=== PATIENT | female | born 1975 | race Caucasian/White ===

== ENCOUNTER 2016-05-11 00:28 | Emergency (ER) | payer OTHER ==
[~2016-05-11] VITALS: Ht 175.3 cm; Wt 89.9 kg
[~2016-05-11 00:28] MED LIST: ADVIL200 MG PO; ALLEGRA ALLERG180 MG PO; ALLEGRA60 MG PO; AMLODIPINE BESYL5 MG PO; BENICAR20 MG PO; BENICAR5 MG PO; BENTYL10 MG PO; CIPRO250 MG PO; CIPRO500 MG PO; CITALOPRAM HBR20 MG PO; FLEXERIL10 MG PO; FLEXERIL5 M1 PO; Flexeril PO; KLOR-CON M2020 MEQ PO; LOPRESSOR50 MG PO; LORTAB 5-325 M1 EACH PO; LYRICA75 MG PO; MEMANTINE HCL10 MG PO; METOPROLOL TART50 MG PO; Motrin PO; NAMENDA10 MG PO; NAPROSYN500 MG PO; NORVASC10 MG PO; NORVASC5 MG PO; Norvasc PO; PERCOCET 5/31 TABLET PO; PERCOCET PO; PRISTIQ50 MG PO; PROMETHAZINE HC25 M1 PO; PYRIDIUM200 MG PO; Percocet 5/325,Endoc PO; REGLAN5 MG PO; SINGULAIR10 MG PO; Singulair PO; TOPAMAX100 MG PO; TROKENDI XR200 MG PO; TYLENOL EXTRA500 MG PO; Theragran PO; Topamax PO; Tylenol Extra Streng PO; Tylenol Regular Stre PO; ULTRAM50 MG PO; VOLTAREN25 MG PO; Voltaren PO; XANAX0.5 MG PO; Xanax PO; ZOFRAN4 MG PO; ZOFRAN8 MG PO; ZYRTEC10 M3 PO; [UNRECOGNIZED DRUG - OTHER] PO
[2016-05-11 02:00] LABS: ADD MIUA? NO; BILIRUBIN NEGATIVE; BLOOD NEGATIVE; COLOR YELLOW ((YELLOW)); GLUCOSE (STRIP) NEGATIVE; KETONES NEGATIVE; LEUKOCYTES NEGATIVE; NITRITE NEGATIVE; PH, URINE 6.5 (5-8); PROTEIN (STRIP) NEGATIVE; SPECIFIC GRAVITY 1.015 (1.000-1.030); UCUL ADDED? NO; UROBILINOGEN 0.2 MG/DL (0.2-1.0)
[2016-05-11 02:22] LABS: HEMATOCRIT 35.3 % (36.0-46.0); MCH 31.7 PG (29.0-34.0); MCHC 34.6 G/DL (30.0-36.0); MCV 91.7 FL (83-99); MEAN PLAT.VOLUME 8.7 uM^3 (9.5-12.4); PLATELET COUNT 333 K/uL (156-360); RBC DIS.WIDTH-CV 13.3 % (11.8-14.6); RBC DIS.WIDTH-SD 42.9 % (39-53); RED BLOOD COUNT 3.85 M/uL (3.80-5.20)
[2016-05-11 02:32] LABS: CHLORIDE 113 mEq/L (99-109); POTASSIUM 3.1 mEq/L (3.7-5.4); SODIUM 141 mEq/L (136-147)
[2016-05-11 02:34] LABS: GLUCOSE 99 mg/dL (70-99)
[2016-05-11 02:35] LABS: ANION GAP 9 MEQ/L (2-14)
[2016-05-11 02:36] LABS: TOTAL BILIRUBIN 0.5 mg/dL (0.0-1.0)
[2016-05-11 02:37] LABS: ALKALINE PHOSPHATASE 62 IU/L (3-129)
[2016-05-11 02:38] LABS: GFR ESTIMATE (CALCULATED) > 59 mL/min/
[2016-05-11 02:39] LABS: UREA NITROGEN (BUN) 10 mg/dL (9-23)
[2016-05-11 02:41] LABS: LIPASE 92 U/L (1.0-51.0)
[2016-05-11] MEDS ORDERED: TUSSIONEX PENN473 ML PO (04:47)
[2016-05-11] MEDS ORDERED: CEFDINIR300 MG PO (04:47)
[2016-05-11 04:55] VITALS: BP 141/81
== END 2016-05-11 04:56 | disposition home or self-care (01) ==
LOC: EME 00:28
PROVIDERS: Emergency Medicine
DX: J01.90 Acute sinusitis, unspecified (principal); E87.6 Hypokalemia; I10 Essential (primary) hypertension; Z88.1 Allergy status to other antibiotic agents
CPT/HCPCS: 80053; 81003; 83690; 85027; 99281; 99285; J2405; J7030

== ENCOUNTER 2016-07-24 11:03 | Emergency (ER) | payer OTHER ==
[~2016-07-24] VITALS: Ht 172.7 cm; Wt 91.4 kg
[~2016-07-24 11:03] MED LIST changes: +CEFDINIR300 MG PO; +TUSSIONEX PENN473 ML PO
[2016-07-24 11:51] LABS: HEMATOCRIT 38.2 % (36.0-46.0); MCH 30.7 PG (29.0-34.0); MCHC 33.8 G/DL (30.0-36.0); PLATELET COUNT 291 K/uL (156-360); RBC DIS.WIDTH-CV 13.2 % (11.8-14.6); RBC DIS.WIDTH-SD 43.5 % (39-53); WHITE BLOOD COUNT 6.4 K/uL (4.1-10.2)
[2016-07-24 12:02] LABS: CHLORIDE 110 mEq/L (99-109); POTASSIUM 3.6 mEq/L (3.7-5.4); SODIUM 138 mEq/L (136-147)
[2016-07-24 12:04] LABS: GLUCOSE 119 mg/dL (70-99)
[2016-07-24 12:05] LABS: ANION GAP 9 MEQ/L (2-14)
[2016-07-24 12:06] LABS: TOTAL BILIRUBIN 0.4 mg/dL (0.0-1.0)
[2016-07-24 12:06] LABS: ADD MIUA? YES; BILIRUBIN NEGATIVE; BLOOD NEGATIVE; COLOR YELLOW ((YELLOW)); GLUCOSE (STRIP) NEGATIVE; KETONES NEGATIVE; LEUKOCYTES NEGATIVE; NITRITE NEGATIVE; PROTEIN (STRIP) NEGATIVE; SPECIFIC GRAVITY 1.014 (1.000-1.030); UROBILINOGEN 0.2 MG/DL (0.2-1.0)
[2016-07-24 12:07] LABS: ALKALINE PHOSPHATASE 64 IU/L (3-129)
[2016-07-24 12:08] LABS: GFR ESTIMATE (CALCULATED) > 59 mL/min/
[2016-07-24 12:09] LABS: UREA NITROGEN (BUN) 12 mg/dL (9-23)
[2016-07-24 12:11] LABS: LIPASE 31 U/L (1.0-51.0)
[2016-07-24] MEDS ORDERED: ATACAND16 MG PO (12:12)
[2016-07-24] MEDS ORDERED: PROTONIX40 MG PO (12:13)
[2016-07-24] MEDS ORDERED: PROMETHAZINE HC25 M1 PO (12:13)
[2016-07-24 12:15] LABS: BACTERIA RARE /HPF; EPITHELIAL CELLS 1+ /HPF; MUCUS TRACE /LPF; RED BLOOD CELLS 0-5 /HPF (0-5); UCUL ADDED? NO; WHITE BLOOD CELLS 0-5 /HPF (0-5)
[2016-07-24 12:17] LABS: QUANTITATIVE HCG < 4.0 MIU/ML
[2016-07-24] MEDS ORDERED: ZOFRAN ODT4 MG PO (13:40)
[2016-07-24] MEDS ORDERED: CARAFATE1 GM PO (13:40)
[2016-07-24 13:50] VITALS: BP 150/82
[2016-07-25] MEDS ORDERED: REGLAN10 MG PO (14:27)
[2016-07-25] MEDS ORDERED: BENTYL10 MG PO (14:27)
[2016-07-25] MEDS ORDERED: TOPAMAX100 MG PO (22:20)
== END 2016-07-24 13:50 | disposition home or self-care (01) ==
LOC: EXP 11:03 → EME 11:03 → EXP 13:50
DX: R10.9 Unspecified abdominal pain (principal); R11.2 Nausea with vomiting, unspecified; J45.909 Unspecified asthma, uncomplicated; I10 Essential (primary) hypertension; K21.9 Gastro-esophageal reflux disease without esophagitis
CPT/HCPCS: 74177; 80053; 81003; 83690; 84702; 85027; 99281; 99284; J2270; J7030

== ENCOUNTER 2016-07-25 13:27 | Emergency (ER) | payer OTHER ==
[~2016-07-25] VITALS: Ht 172.7 cm; Wt 88.4 kg
[~2016-07-25 13:27] MED LIST changes: +ATACAND16 MG PO; +CARAFATE1 GM PO; +PROTONIX40 MG PO; +ZOFRAN ODT4 MG PO
[2016-07-25] MEDS ORDERED: REGLAN10 MG PO (14:27)
[2016-07-25] MEDS ORDERED: BENTYL10 MG PO (14:27)
[2016-07-25 15:24] VITALS: BP 149/90
[2016-07-25] MEDS ORDERED: TOPAMAX100 MG PO (22:20)
== END 2016-07-25 15:26 | disposition home or self-care (01) ==
LOC: EME 13:27
DX: R11.2 Nausea with vomiting, unspecified (principal); R10.13 Epigastric pain
CPT/HCPCS: 99281; 99285; J1885; J2405; J2765; J7030

== ENCOUNTER → 2016-08-04 | Outpatient (CLI) | payer OTHER ==
[~2016-08-04] VITALS: Ht 172.7 cm; Wt 89.0 kg
[~2016-08-04] MED LIST changes: +REGLAN10 MG PO
[2016-08-04 07:52] VITALS: BP 121/77
== END | disposition home or self-care (01) ==
LOC: IVINF 07-31 19:00
PROVIDERS: Internal Medicine Endocrinology, Diabetes & Metabolism
DX: E27.40 Unspecified adrenocortical insufficiency (principal)
CPT/HCPCS: 80400; 82024 90; 82533 91; 96374; J0834

== ENCOUNTER 2016-09-21 00:50 | Emergency (ER) | payer OTHER ==
[~2016-09-21] VITALS: Ht 175.3 cm; Wt 93.7 kg
[2016-09-21] MEDS ORDERED: ZOFRAN4 MG PO (03:20)
[2016-09-21] MEDS ORDERED: FLEXERIL10 MG PO (03:20)
[2016-09-21 03:21] LABS: QUANTITATIVE HCG < 4.0 MIU/ML
[2016-09-21 03:25] LABS: ALKALINE PHOSPHATASE 55 IU/L (3-129); ANION GAP 13 MEQ/L (2-14); CHLORIDE 106 MEQ/L (99-109); GFR ESTIMATE (CALCULATED) > 59 mL/min/; GLUCOSE 94 mg/dL (70-99); LIPASE 28 U/L (1.0-51.0); POTASSIUM 3.4 MEQ/L (3.7-5.4); SAMPLE HEMOLYSIS CHECK 0; SAMPLE ICTERIC CHECK 0; SAMPLE LIPEMIA CHECK 0; SODIUM 139 MEQ/L (136-147); TOTAL BILIRUBIN 0.5 MG/DL (0.0-1.0); UREA NITROGEN (BUN) 12 mg/dL (9-23)
[2016-09-21 03:33] LABS: RED BLOOD COUNT 4.54 M/uL (3.80-5.20); WHITE BLOOD COUNT 9.6 K/uL (4.1-10.2)
[2016-09-21 03:34] LABS: MCH 30.6 PG (29.0-34.0); MCHC 34.8 G/DL (30.0-36.0); MCV 88.1 FL (83-99); MEAN PLAT.VOLUME 9.1 uM^3 (9.5-12.4); PLATELET COUNT 399 K/uL (156-360); RBC DIS.WIDTH-CV 13.2 % (11.8-14.6); RBC DIS.WIDTH-SD 42.6 % (39-53)
[2016-09-21 03:41] LABS: ADD MIUA? YES; BILIRUBIN NEGATIVE; BLOOD NEGATIVE; COLOR YELLOW ((YELLOW)); GLUCOSE (STRIP) NEGATIVE; KETONES NEGATIVE; LEUKOCYTES NEGATIVE; NITRITE NEGATIVE; PROTEIN (STRIP) NEGATIVE; SPECIFIC GRAVITY 1.012 (1.000-1.030); UROBILINOGEN 0.2 MG/DL (0.2-1.0)
[2016-09-21 03:46] VITALS: BP 133/86
[2016-09-21 03:56] LABS: BACTERIA RARE /HPF; EPITHELIAL CELLS RARE /HPF; MUCUS TRACE /LPF; RED BLOOD CELLS 0-5 /HPF (0-5); UCUL ADDED? NO; WHITE BLOOD CELLS 0-5 /HPF (0-5)
== END 2016-09-21 03:47 | disposition home or self-care (01) ==
LOC: EME 00:50
DX: I10 Essential (primary) hypertension (principal); R25.2 Cramp and spasm; R11.0 Nausea; E27.1 Primary adrenocortical insufficiency
CPT/HCPCS: 80053; 81003; 83690; 84702; 85027; 99281; 99284

== ENCOUNTER 2016-10-15 09:51 | Emergency (ER) | payer OTHER ==
[~2016-10-15] VITALS: Ht 175.3 cm; Wt 95.8 kg
[2016-10-15] MEDS ORDERED: BUTALB-APAP-CA1 EACH PO (10:20)
[2016-10-15 10:49] LABS: BASOPHIL COUNT 0.1 K/uL (0-0.1); EOSINOPHIL (%) 0.5 % (0-5); EOSINOPHIL COUNT 0.1 K/uL (0-0.3); HEMATOCRIT 35.2 % (36.0-46.0); IMMATURE GRANULOCYTE (%) 0.5 % (0.0-0.7); IMMATURE GRANULOCYTE COUNT 0.1 K/uL; INSTRUMENT ABS NEUTROPHIL CT 6.4 K/uL; LYMPHOCYTE COUNT 2.4 K/uL (1.0-2.8); MCH 30.7 PG (29.0-34.0); MCHC 34.7 G/DL (30.0-36.0); MCV 88.7 FL (83-99); MONOCYTE (%) 4.2 % (3-12); MONOCYTE COUNT 0.4 K/uL (0-0.8); NEUTROPHIL (%) 68.2 % (45-76); NEUTROPHIL COUNT 6.4 K/uL (1.8-6.4); PLATELET COUNT 284 K/uL (156-360); RBC DIS.WIDTH-CV 13.1 % (11.8-14.6); RBC DIS.WIDTH-SD 42.2 % (39-53); RED BLOOD COUNT 3.97 M/uL (3.80-5.20); WHITE BLOOD COUNT 9.4 K/uL (4.1-10.2)
[2016-10-15 11:00] LABS: CHLORIDE 114 mEq/L (99-109); POTASSIUM 3.6 mEq/L (3.7-5.4); SODIUM 140 mEq/L (136-147)
[2016-10-15 11:02] LABS: GLUCOSE 96 mg/dL (70-99)
[2016-10-15 11:03] LABS: ANION GAP 7 MEQ/L (2-14)
[2016-10-15 11:06] LABS: GFR ESTIMATE (CALCULATED) > 59 mL/min/; UREA NITROGEN (BUN) 10 mg/dL (9-23)
[2016-10-15 11:10] LABS: TROP-I INTERPRETATION NEGATIVE; TROPONIN-I < 0.01 ng/mL (0.0-0.30)
[2016-10-15] MEDS ORDERED: INDOCIN50 MG PO (12:13)
[2016-10-15] MEDS ORDERED: VALIUM2 MG PO (12:13)
[2016-10-15 12:26] VITALS: BP 131/93
== END 2016-10-15 12:29 | disposition home or self-care (01) ==
LOC: EME 09:51
PROVIDERS: Emergency Medicine
DX: R07.89 Other chest pain (principal); Z88.8 Allergy status to other drugs, medicaments and biological substances; Z88.1 Allergy status to other antibiotic agents; J45.909 Unspecified asthma, uncomplicated; I10 Essential (primary) hypertension; K21.9 Gastro-esophageal reflux disease without esophagitis
CPT/HCPCS: 71010; 80048; 84484; 85025; 85379; 93005; 99281; 99285; J3010; J7040

== ENCOUNTER 2017-06-03 10:55 | Emergency (ER) | payer OTHER ==
[~2017-06-03] VITALS: Ht 175.3 cm; Wt 90.7 kg
[~2017-06-03 10:55] MED LIST changes: +BUTALB-APAP-CA1 EACH PO; +INDOCIN50 MG PO; +VALIUM2 MG PO
[2017-06-03 11:28] LABS: HEMATOCRIT 39.1 % (36.0-46.0); HEMOGLOBIN 13.7 G/DL (11.9-15.5); MCH 30.6 PG (29.0-34.0); MCV 87.3 FL (83-99); PLATELET COUNT 355 K/uL (156-360); RBC DIS.WIDTH-CV 12.8 % (11.8-14.6); RBC DIS.WIDTH-SD 40.6 % (39-53); RED BLOOD COUNT 4.48 M/uL (3.80-5.20); WHITE BLOOD COUNT 7.2 K/uL (4.1-10.2)
[2017-06-03 11:42] LABS: ALBUMIN 4.3 g/dL (3.2-4.8); CHLORIDE 109 mEq/L (99-109); POTASSIUM 3.8 mEq/L (3.7-5.4); SODIUM 136 mEq/L (136-147)
[2017-06-03 11:45] LABS: GLUCOSE 96 mg/dL (70-99); TOTAL PROTEIN 7.5 g/dL (6.4-8.3)
[2017-06-03 11:46] LABS: TOTAL BILIRUBIN 0.3 mg/dL (0.0-1.0)
[2017-06-03 11:48] LABS: ALKALINE PHOSPHATASE 57 IU/L (3-129); CREATININE 1.3 mg/dL (0.6-1.3); GFR ESTIMATE (CALCULATED) 48 mL/min/
[2017-06-03 11:49] LABS: UREA NITROGEN (BUN) 12 mg/dL (9-23)
[2017-06-03 11:50] LABS: AST (GOT) 23 IU/L (2-34)
[2017-06-03 11:51] LABS: ALT (GPT) 23 IU/L (3-49)
[2017-06-03 11:52] LABS: LIPASE 32 U/L (1.0-51.0)
[2017-06-03 11:57] LABS: QUANTITATIVE HCG < 4.0 MIU/ML
[2017-06-03 12:11] LABS: BILIRUBIN NEGATIVE; BLOOD NEGATIVE; GLUCOSE (STRIP) NEGATIVE; KETONES 5; LEUKOCYTES NEGATIVE; NITRITE NEGATIVE; PROTEIN (STRIP) 30; SPECIFIC GRAVITY 1.026 (1.000-1.030); UROBILINOGEN 0.2 MG/DL (0.2-1.0)
[2017-06-03 12:16] LABS: APPEARANCE CLEAR ((CLEAR)); COLOR YELLOW ((YELLOW)); UCUL ADDED? NO
[2017-06-03] MEDS ORDERED: AMBIEN10 MG PO (13:09)
[2017-06-03] MEDS ORDERED: BELBUCA300 MCG BC (13:09)
[2017-06-03] MEDS ORDERED: TROKENDI XR50 MG PO (13:09)
[2017-06-03] MEDS ORDERED: PRISTIQ50 MG PO (13:09)
[2017-06-03] MEDS ORDERED: ZANAFLEX4 M1 PO (13:10)
[2017-06-03] MEDS ORDERED: ZOFRAN ODT4 MG PO (15:03)
[2017-06-03 16:14] VITALS: BP 125/76
== END 2017-06-03 16:15 | disposition home or self-care (01) ==
LOC: EME 10:55
DX: A08.4 Viral intestinal infection, unspecified (principal); R42 Dizziness and giddiness; R51 Headache; J45.909 Unspecified asthma, uncomplicated; I10 Essential (primary) hypertension; K21.9 Gastro-esophageal reflux disease without esophagitis; G43.909 Migraine, unspecified, not intractable, without status migrainosus; E27.1 Primary adrenocortical insufficiency; Z90.49 Acquired absence of other specified parts of digestive tract; Z90.710 Acquired absence of both cervix and uterus; Z88.1 Allergy status to other antibiotic agents; Z88.8 Allergy status to other drugs, medicaments and biological substances
CPT/HCPCS: 80053; 81003; 83690; 84702; 85027; J1885

== ENCOUNTER 2017-11-26 12:23 | Observation (INO) | payer OTHER ==
[~2017-11-26] VITALS: Ht 175.3 cm; Wt 91.5 kg
[~2017-11-26 12:23] MED LIST changes: +AMBIEN CR6.25 MG PO; +BELBUCA300 MCG BC; +TROKENDI XR50 MG PO; +ZANAFLEX4 M1 PO
[2017-11-26 14:16] LABS: HEMATOCRIT 35.4 % (36.0-46.0); HEMOGLOBIN 12.7 G/DL (11.9-15.5); MCH 31.4 PG (29.0-34.0); MCHC 35.9 G/DL (30.0-36.0); MCV 87.6 FL (83-99); NRBC (%) 0.4 /100 WBC (0-0); PLATELET COUNT 260 K/uL (156-360); RBC DIS.WIDTH-CV 13.2 % (11.8-14.6); RBC DIS.WIDTH-SD 42.1 % (39-53); RED BLOOD COUNT 4.04 M/uL (3.80-5.20)
[2017-11-26 14:27] LABS: ALBUMIN 4.1 g/dL (3.2-4.8); CHLORIDE 111 mEq/L (99-109); POTASSIUM 4.3 mEq/L (3.7-5.4); SODIUM 139 mEq/L (136-147)
[2017-11-26 14:29] LABS: GLUCOSE 102 mg/dL (70-99); TOTAL PROTEIN 7.1 g/dL (6.4-8.3)
[2017-11-26 14:31] LABS: TOTAL BILIRUBIN 0.3 mg/dL (0.0-1.0)
[2017-11-26 14:33] LABS: ALKALINE PHOSPHATASE 51 IU/L (3-129); CREATININE 0.9 mg/dL (0.6-1.3); GFR ESTIMATE (CALCULATED) > 59 mL/min/
[2017-11-26 14:34] LABS: UREA NITROGEN (BUN) 13 mg/dL (9-23)
[2017-11-26 14:35] LABS: AST (GOT) 19 IU/L (2-34)
[2017-11-26 14:36] LABS: ALT (GPT) 18 IU/L (3-49); CREATINE KINASE 84 IU/L (1-294)
[2017-11-26 14:37] LABS: TROP-I INTERPRETATION NEGATIVE; TROPONIN-I < 0.01 ng/mL (0.0-0.30)
[2017-11-26 14:42] LABS: QUANTITATIVE HCG < 4.0 MIU/ML
[2017-11-26 14:49] LABS: MONOSPOT (MONONUCLEOSIS SEROL) NEGATIVE
[2017-11-26 15:07] LABS: THYROTROPIN (TSH) 3.3 MIU/L (0.4-5.5)
[2017-11-26 19:22] LABS: APPEARANCE SL.HAZY ((CLEAR)); BILIRUBIN NEGATIVE; BLOOD NEGATIVE; COLOR YELLOW ((YELLOW)); GLUCOSE (STRIP) NEGATIVE; KETONES NEGATIVE; LEUKOCYTES NEGATIVE; NITRITE NEGATIVE; PROTEIN (STRIP) NEGATIVE; SPECIFIC GRAVITY 1.008 (1.000-1.030); UROBILINOGEN 0.2 MG/DL (0.2-1.0)
[2017-11-26 19:29] LABS: BACTERIA RARE /HPF; EPITHELIAL CELLS 2+ /HPF; MUCUS NONE SEEN /LPF; RED BLOOD CELLS 0-5 /HPF (0-5); UCUL ADDED? NO; WHITE BLOOD CELLS 0-5 /HPF (0-5)
[2017-11-26] MEDS ORDERED: TROKENDI XR100 MG PO (21:33)
[2017-11-26] MEDS ORDERED: MAXALT5 MG PO (21:34)
[2017-11-26] MEDS ORDERED: ZOMIG5 MG PO (21:35)
[2017-11-26 23:38] VITALS: BP 180/89
[2017-11-27] VITALS (8 sets, daily range): BP systolic 101–195; BP diastolic 65–100
[2017-11-27 05:14] LABS: BASOPHIL (%) 0.7 % (0-1); BASOPHIL COUNT 0.1 K/uL (0-0.1); EOSINOPHIL (%) 1.5 % (0-5); EOSINOPHIL COUNT 0.1 K/uL (0-0.3); HEMATOCRIT 34.4 % (36.0-46.0); HEMOGLOBIN 11.9 G/DL (11.9-15.5); IMMATURE GRANULOCYTE (%) 0.3 % (0.0-0.7); LYMPHOCYTE (%) 41.2 % (15-42); LYMPHOCYTE COUNT 2.8 K/uL (1.0-2.8); MCH 30.7 PG (29.0-34.0); MCHC 34.6 G/DL (30.0-36.0); MCV 88.9 FL (83-99); MONOCYTE (%) 5.7 % (3-12); MONOCYTE COUNT 0.4 K/uL (0-0.8); NEUTROPHIL (%) 50.6 % (45-76); NEUTROPHIL COUNT 3.4 K/uL (1.8-6.4); PLATELET COUNT 252 K/uL (156-360); RBC DIS.WIDTH-CV 13.2 % (11.8-14.6); RBC DIS.WIDTH-SD 42.7 % (39-53); RED BLOOD COUNT 3.87 M/uL (3.80-5.20); WHITE BLOOD COUNT 6.8 K/uL (4.1-10.2)
[2017-11-27 06:12] LABS: ALBUMIN 3.5 G/DL (3.2-4.8); ALKALINE PHOSPHATASE 39 IU/L (3-129); ALT (GPT) 13 IU/L (3-49); AST (GOT) 14 IU/L (2-34); CHLORIDE 113 MEQ/L (99-109); GFR ESTIMATE (CALCULATED) > 59 mL/min/; GLUCOSE 100 mg/dL (70-99); POTASSIUM 3.8 MEQ/L (3.7-5.4); SODIUM 139 MEQ/L (136-147); TOTAL BILIRUBIN 0.3 MG/DL (0.0-1.0); TOTAL PROTEIN 6.1 G/DL (6.4-8.3); UREA NITROGEN (BUN) 11 mg/dL (9-23)
[2017-11-28 08:29] VITALS: BP 156/92
[2017-11-28 08:44] VITALS: BP 137/80
[2017-11-28] MEDS ORDERED: ANTIVERT12.5 MG PO (10:21)
[2017-11-29 09:25] LABS: LYME DISEASE SEROLOGY SCREEN NEGATIVE (NEGATIVE)
== END 2017-11-28 12:30 | disposition home or self-care (01) ==
LOC: EME 12:23 → EDOF 21:11 → 4SOUTH 21:11 → ENRESERV 21:24 → 4SOUTH 22:43 → ENPENDDIS 11-28 10:34 → 4SOUTH 11-28 12:30
PROVIDERS: Hospitalist; Physician Assistant; Psychiatry & Neurology Neurology
PROC: B246ZZZ Ultrasonography of Right and Left Heart (ICD-10-PCS; principal; 2017-11-27)
DX: I95.1 Orthostatic hypotension (principal); G43.909 Migraine, unspecified, not intractable, without status migrainosus; I10 Essential (primary) hypertension; Z90.49 Acquired absence of other specified parts of digestive tract; E87.6 Hypokalemia; J45.909 Unspecified asthma, uncomplicated; K21.9 Gastro-esophageal reflux disease without esophagitis; Z88.1 Allergy status to other antibiotic agents; Z88.8 Allergy status to other drugs, medicaments and biological substances
CPT/HCPCS: 70450; 70551; 71046; 80048; 80053; 80076; 81003; 82550; 82607; 82948; 84443; 84484; 84702; 85025; 85027; 86308; 86618; 93005; 93306; 99281; 99285; G0378; G8978 GP CH; G8979 GP CH; G8980 GP CH; J1650; J1885; J7030; Q0169

== ENCOUNTER 2017-12-04 20:09 | Observation (INO) | payer OTHER ==
[~2017-12-04] VITALS: Ht 175.3 cm; Wt 89.4 kg
[~2017-12-04 20:09] MED LIST changes: +ANTIVERT12.5 MG PO; +MAXALT5 MG PO; +TROKENDI XR100 MG PO; +ZOMIG5 MG PO
[2017-12-04 20:57] LABS: HEMATOCRIT 39.9 % (36.0-46.0); MCH 31.5 PG (29.0-34.0); MCHC 36.3 G/DL (30.0-36.0); MCV 86.7 FL (83-99); PLATELET COUNT 296 K/uL (156-360); RBC DIS.WIDTH-CV 13.3 % (11.8-14.6); RBC DIS.WIDTH-SD 42.3 % (39-53); WHITE BLOOD COUNT 7.2 K/uL (4.1-10.2)
[2017-12-04 20:58] LABS: HEMOGLOBIN 14.5 G/DL (11.9-15.5)
[2017-12-04 21:01] LABS: CHLORIDE 110 mEq/L (99-109); POTASSIUM 3.7 mEq/L (3.7-5.4); SODIUM 140 mEq/L (136-147)
[2017-12-04 21:02] LABS: GLUCOSE 99 mg/dL (70-99)
[2017-12-04 21:06] LABS: GFR ESTIMATE (CALCULATED) > 59 mL/min/
[2017-12-04 21:07] LABS: TROP-I INTERPRETATION NEGATIVE; TROPONIN-I < 0.01 ng/mL (0.0-0.30); UREA NITROGEN (BUN) 11 mg/dL (9-23)
[2017-12-04] MEDS ORDERED: PANTOPRAZOLE SO40 MG PO (23:00)
[2017-12-04] MEDS ORDERED: AMLODIPINE BESYL5 MG PO (23:00)
[2017-12-04] MEDS ORDERED: MOMETASONE FURO17 GM BOTH NARES (23:05)
[2017-12-04] MEDS ORDERED: MONTELUKAST SOD10 MG PO (23:05)
[2017-12-04] MEDS ORDERED: DESVENLAFAXINE50 M3 PO (23:05)
[2017-12-05] VITALS (7 sets, daily range): BP systolic 134–180; BP diastolic 81–116
[2017-12-05 05:53] LABS: TROP-I INTERPRETATION NEGATIVE; TROPONIN-I < 0.01 ng/mL (0.0-0.30)
[2017-12-05 12:12] LABS: TROP-I INTERPRETATION NEGATIVE; TROPONIN-I < 0.01 ng/mL (0.0-0.30)
[2017-12-05] MEDS ORDERED: FIORICET,ESG1 TABLET PO (13:49)
[2017-12-05] MEDS ORDERED: LABETALOL HCL200 MG PO (13:49)
== END 2017-12-05 21:15 | disposition home or self-care (01) ==
LOC: EME 20:09 → EDOF 12-05 01:51 → ENRESERV 12-05 01:52 → 4SOUTH 12-05 03:30
PROVIDERS: Hospitalist
DX: R07.89 Other chest pain (principal); G43.909 Migraine, unspecified, not intractable, without status migrainosus; I10 Essential (primary) hypertension; Z79.82 Long term (current) use of aspirin; Z79.01 Long term (current) use of anticoagulants; Z90.49 Acquired absence of other specified parts of digestive tract; Z90.79 Acquired absence of other genital organ(s); Z90.721 Acquired absence of ovaries, unilateral; Z82.49 Family history of ischemic heart disease and other diseases of the circulatory system; Z88.1 Allergy status to other antibiotic agents; Z88.8 Allergy status to other drugs, medicaments and biological substances
CPT/HCPCS: 70450; 71046; 80048; 84484; 85027; 85379; 93005; 99281; 99285; G0378; J1170; J1650; J2270; J2405